=== PATIENT | female | born 1930 | race Caucasian/White ===

== ENCOUNTER → 2016-12-12 | Outpatient (CLI) | payer OTHER | LOC: RAD 15:47 | DX: R05 Cough (principal) ==

== ENCOUNTER 2018-08-07 18:48 | Inpatient (IN) | payer OTHER ==
[~2018-08-07] VITALS: Ht 165.1 cm; Wt 54.3 kg
[2018-08-07 18:50] VITALS: BP 184/101
[2018-08-07] MEDS ORDERED: METFORMIN HCL500 MG PO (19:51)
[2018-08-07] MEDS ORDERED: IBUPROFEN 200200 M1 PO (19:52)
[2018-08-07 20:56] LABS: HEMATOCRIT 41.6 % (37.0-47.0); HEMOGLOBIN 14.1 gm/dL (12.0-15.0); MCH 31.3 pg (26.0-34.0); MCV 92.2 fL (80.0-100.0); RBC 4.52 mil/uL (4.20-5.00); WBC 17.3 thou/uL (4.0-11.0)
[2018-08-07 21:42] LABS: CALCIUM 9.5 mg/dL (8.5-10.1); POTASSIUM 3.5 mmol/L (3.5-5.1)
[2018-08-07 21:48] VITALS: BP 162/87
[2018-08-07 21:50] LABS: URINE CLARITY CLEAR; URINE COLOR YELLOW; URINE GLUCOSE-RANDOM* TRACE (Negative); URINE KETONES TRACE (Negative); URINE PROTEIN (DIPSTICK) NEGATIVE (Negative); URINE SPECIFIC GRAVITY 1.025 (1.005-1.035)
[2018-08-07 21:51] LABS: URINE BILIRUBIN NEGATIVE (Negative); URINE BLOOD 1+ (Negative); URINE LEUKOCYTES-REFLEX NEGATIVE (Negative); URINE NITRITE-REFLEX NEGATIVE (Negative); URINE UROBILINOGEN 0.2 E.U./dl (0.2-1.0)
[2018-08-07 21:58] VITALS: BP 173/73
[2018-08-07 21:58] LABS: BACTERIA-REFLEX 1-9 Few /HPF (None Seen); CASTS None Seen /LPF (None Seen); CRYSTALS None Seen /LPF (None Seen); SQUAMOUS 0-3 Few /LPF (0-3); URINE RBC 0-2 Rare /HPF (0-2); URINE WBC-REFLEX None Seen /HPF (0-5)
[2018-08-07 22:17] VITALS: BP 152/99
[2018-08-08 04:16] VITALS: BP 146/78
--- NOTE | 2018-08-08 05:20 | NUR ---
Pt came up to unit approx 2215. Pt alert and oriented x4. Refuses to take any narcotics for pain. Ibuprofen administered per pt request. Curtis catheter in place. SCD's on. Pain on pelvic area with movement. Admission completed. Ice pack provided for pain relief. Pt states she will not be taking metformin or protonix in the am but agrees to have lidocaine patch put on. Pt calls appropriately. Will continue to monitor.
[2018-08-08 06:46] LABS: ABSOLUTE NEUTROPHILS 5.8 thou/uL (1.4-8.2); BASOPHILS 0.6 % (0.0-2.0); EOSINOPHILS 0.2 % (0.0-3.0); HEMATOCRIT 32.8 % (37.0-47.0); LYMPHOCYTES 27.4 % (24.0-44.0); MCH 31.6 pg (26.0-34.0); MCHC 34.6 g/dL (28.0-37.0); MCV 91.4 fL (80.0-100.0); MONOCYTES 5.3 % (1.0-8.0); PLATELET COUNT 158 thou/uL (150-400); POLYS 66.5 % (36.0-66.0); RBC 3.59 mil/uL (4.20-5.00); RDW 13.5 % (10.5-14.5); WBC 8.7 thou/uL (4.0-11.0)
[2018-08-08 06:59] LABS: HEMOGLOBIN 11.4 gm/dL (12.0-15.0)
[2018-08-08 07:05] LABS: ALBUMIN 3.1 g/dL (3.4-5.0); CALCIUM 8.9 mg/dL (8.5-10.1); POTASSIUM 3.3 mmol/L (3.5-5.1); TOTAL BILIRUBIN 0.8 mg/dL (<0.1-1.0); TOTAL PROTEIN 6.3 g/dL (6.4-8.2)
[2018-08-08 07:45] VITALS: BP 110/56
--- NOTE | 2018-08-08 10:34 | NUR ---
ASSESMENT COMPLETED. VSS. A/O. PAIN MANAGED BY MEDS ORDERED- REFUSING NARCOTICS. NO NOTED SOA. NO NV. PT RESTING IN BED AT THIS TIME. WILL CONT. TO MONITOR.
--- NOTE | 2018-08-08 14:46 | NUR ---
PT ADMITTED RELATED TO PELVIC FX. CM REVIEWED CHART AND SPOKE WITH CARE TEAM. CM MET WITH PT AT BEDSIDE THIS DAY. PT IS A&O X4. CM ROLE INTRODUCED. PT INDICATED SHE LIVES IN A HOUSE WITH HER SPOUSE WHO IS IN THE BEGINING STAGES OF ALZ. SHE SAID THERE ARE 2 STEPS TO ENTER THE HOUSE THROUGH THE GARAGE. SHE INDICATED THAT HE NEIGHBORS ARE HELPING TO LOOK OUT FOR HIM. SHE INDICATED SHE HAD BEEN INDEPENDENT WITH GAIT AND ADLS LDR RN. PT INDICATED THAT SHE IS RECEPTIVE TO POST ACUTE CARE STAY AND THAT SHE IS WANTING TO GO SOMEWHERE WHERE HER SPOUSE CAN STAY WITH HER IF POSSIBLE. CM PROVIED HER A LIST OF FACILITIES AND WILL SEND REFERRALS PER HER REQUEST.
--- NOTE | 2018-08-08 16:38 | NUR ---
FAXED REFERRAL TO [facility] FOR SKILLED STAY LEFT MSG WITH DANIELLE THAT REFERRAL SENT AND TO REVIEW. ANTICIPATE DC FRIDAY 08/11. FAXED REFERRAL TO [facility] SPOKE WITH MAILE AT FACILITY AND THEY RECEIVED REFERRAL AND WILL REVIEW. FAXED REFERRAL TO [facility]. HC SPOKE WITH THERON AND SHE WILL LET SARAH IN ADM. KNOW REFERRAL SENT. DCP TO FOLLOW.
--- NOTE | 2018-08-08 16:53 | NUR ---
CM MET WITH PT SPOUSE AND NEIGHBOR AT BEDSIDE. THEY INDICATED THEY WERE INTERESTED IN [facility], [facility], AND [facility]. REFERRALS WERE SENT TO ALL. RESPIT RATE FOR SPOUSE TO STAY WITH PT: [facility]:625 PER DAY [facility]:320 PER DAY [facility]:259 PER DAY CM TO FOLLOW UP TO DETERMINE DC NEEDS
[2018-08-08 19:50] VITALS: BP 129/51
--- NOTE | 2018-08-09 04:23 | NUR ---
PT DENIED PAIN SO FAR.REPOSITIONED PER HER REQUEST.ICE PROVIDED FOR HER HIP.IVF INFSUING ORDERED.LEWIS CATH TO DD.PT NEEDY,NEEDS MET IN A TIMELY MANNER.PT RESTING ON HER BED AT THIS TIME.CALL LIGHT WITHIN REACH.
[2018-08-09 04:27] VITALS: BP 134/68
[2018-08-09 07:45] VITALS: BP 139/77
--- NOTE | 2018-08-09 11:23 | NUR ---
PT REFUSED METFORMIN FROM [facility] BUT WANTS AT THIS TIME
[2018-08-09 16:30] VITALS: BP 137/66
[2018-08-09 16:50] VITALS: BP 137/66
[2018-08-09 20:00] VITALS: BP 145/72
--- NOTE | 2018-08-10 00:30 | NUR ---
PT REFUSED TO TAKE HER STOOL SOFTENER STATED THAT SHE DOESN'T TAKE THE MED,BUT LATER CHANGED HER MIND AND TOOK IT AFTER PT WAS EDUCATED ON THE IMPORTANCE OF THE MEDICATION.REPOSITIONED WHILE IN BED PER HER REQUEST.IVF INFUSING ORDERED.PT SLEEPING ON HER BED AT THIS TIME.CALL LIGHT WITHIN REACH.
[2018-08-10 04:30] VITALS: BP 153/79
[2018-08-10 06:54] VITALS: BP 134/67
[2018-08-10 10:35] VITALS: BP 134/67
[2018-08-10 16:13] VITALS: BP 166/75
[2018-08-10 20:30] VITALS: BP 134/69
[2018-08-11 03:20] VITALS: BP 137/73
[2018-08-11 03:48] LABS: CALCIUM 8.7 mg/dL (8.5-10.1); CREATININE 0.8 mg/dL (0.6-1.0); POTASSIUM 3.6 mmol/L (3.5-5.1)
[2018-08-11 03:57] LABS: HEMATOCRIT 30.7 % (37.0-47.0); HEMOGLOBIN 10.2 gm/dL (12.0-15.0); MCH 30.8 pg (26.0-34.0); MCHC 33.4 g/dL (28.0-37.0); MCV 92.3 fL (80.0-100.0); RBC 3.33 mil/uL (4.20-5.00); RDW 14.2 % (10.5-14.5); WBC 7.4 thou/uL (4.0-11.0)
--- NOTE | 2018-08-11 04:55 | NUR ---
LEWIS CATH DC'D ORDERED.MIRALAX AND STOOL SOFTNER ADMINISTERED,MEDIUM SOFT BM NOTED.PT REPOSITIONED IN BED PER HER REQUSET,SUPPORTED WITH PILLOWS ON HER SIDES.PT ABLE TO STAND AND SIT ON THE BSC WITH ASSIST.PAIN MED ADMINISTERED X1 SO FAR FOR R HIP PAIN,EFFECTIVE.PT PROGRESSING SLOWLY TOWARDS DC GOALS.CALL LIGHT WITHIN REACH.
[2018-08-11 07:30] VITALS: BP 139/71
--- NOTE | 2018-08-11 09:14 | NUR ---
ASSUME CARE OF PATIENT AT 0800; PTS LUNGS CLEAR UPON AUSCULTATION; HEART SOUNDS STRONG; PULSES STRONG BILATERLY; PT AGREEABLE UPON TAKING IBUPROFEN FOR PAIN TODAY SO THAT SHE CAN PARTICIPATE IN PT
--- NOTE | 2018-08-11 11:47 | NUR ---
REMOVED IV ACCESS FROM LEFT ARM
--- NOTE | 2018-08-11 13:29 | NUR ---
Following for d/c planning needs. Spoke with materials handling coordinator at [facility]. She does not have a bed available today and is not sure if she will have a room available tomorrow for pt and spouse. Spoke with materials handling coordinator at [facility]. They have spoken with pt and plan on accepting pt and her . They have a bed available today and can accept both. Notified physician. Will await orders.
[2018-08-11 15:45] VITALS: BP 140/78
--- NOTE | 2018-08-11 16:27 | H ---
[facility] [place] [address] HISTORY AND PHYSICAL Name: MERCEDES MIJARES Room #: 428-P [facility] IN M.R.#: [id number] Admission: 08/07/18 Attend Phys: Adams Terrazas MD Discharge: Date of : 31 Report #: [id number] THIS REPORT FOR: //name// CC: Adams Terrazas DATE OF SERVICE: 08/07/2018 CHIEF COMPLAINT: Right pubic ramus fracture. HISTORY OF PRESENT ILLNESS: Earlier this evening the patient fell landing on her buttock area after which she reported pain in the right pelvic area. She was brought to the Emergency Room by the paramedics where x-rays showed right pelvic ramus fracture. She requires admission for pain medication adjustment, therapies, and mobilization. The patient says that she lost her balance and fell while stepping from the kitchen into the garage, but did not have shortness of breath, chest pain or loss of consciousness. She has mild glucose intolerance or mild diabetes. She takes metformin 500 mg daily. She has elevated cholesterols, but has preferred not to take lipid lowering agents. eGFR varies from middle 50's (CKD III) to middle 60's (CKD II). ALLERGIES: CODEINE, DIAZEPAM, HYDROCODONE, PENICILLIN, AND POSSIBLY SULFA. Lipitor-atorvastatin was associated with hair falling out in distant past and she won't take statins now. SOCIAL HISTORY: She lives independently in her own home with her . She does not drink nor smoke. She wishes full code. REVIEW OF SYSTEMS: In general feels well and was under good state of health until the accident earlier this evening. No HEENT symptoms. There is no shortness of breath or cough or breathing problems. She has no chest pain or shortness of breath with exertion or swelling. There is no abdominal pain, nausea, vomiting, diarrhea or dysuria. She denies acute rashes. There is no headache or weakness on one side upon the other. FAMILY HISTORY: Noncontributory since she has outlived her first degree relatives. PHYSICAL EXAMINATION: VITAL SIGNS: 92% saturation on room air, blood pressure 184/101, temperature is 36.6, pulse 96 and regular, and respirations are 20. GENERAL: The patient is alert and oriented. HEENT: Unremarkable, the oropharynx is mildly dry, otherwise HEENT is negative. NECK: There are no masses. LUNGS: Clear to auscultation and percussion. [address] [address] HISTORY AND PHYSICAL Name: MERCEDES MIJARES Room #: 428-P [facility] IN .R.#: [id number] Admission: 08/07/18 Attend Phys: Adams Terrazas MD Discharge: Date of : 31 Report #: [id number] CHEST WALL: Nontender to palpation. CARDIOVASCULAR: S1 and S2 are normal in character and the rhythm is regular. ABDOMEN: Soft, nontender, without hepatosplenomegaly or masses. Bowel sounds are normal. EXTREMITIES: The Emergency Room physician examined movement of her right leg and thigh and it did trigger pain in the right buttock area and in the right pubic area. The motor and sensory exam of the legs is normal. There is no edema. DIAGNOSTIC DATA: X-ray of the pelvis showed acute mildly displaced fracture of the right superior and right inferior pubic rami with extension of the fracture into the right pubic bone. The hip itself is not fractured. 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 She is worried that others will have more difficulty making themselves understood by him, while she is recovering from her fracture. She hopes that he will be able to stay in the same room with her at the [facility] facility. ASSESSMENT: 1. Acute right superior and inferior pubic rami fractures. 2. The patient reports that she is quite sensitive to pain medication and is actively discouraging the use of effective narcotic analgesics. 3. Elevated blood pressure due to her pain. 4. Glucose intolerance/mild type 2 diabetes. 5. Untreated hyperlipidemia (the patient's choice). 6. Other medical problems as in history and physical. PLAN: The patient is unable to walk. She requires admission for careful judicious analgesic management in order to allow her some mobility. Curtis catheter is being inserted in order to keep her dry while it is difficult for her to be mobile. Physical Therapy, Occupational Therapy, and social work consultations are being made. She will also be seen in orthopedic consultation. Lovenox will be used as well as SCDs because of the high risk for DVT and/or pulmonary embolus while she is going to be immobile. The patient requests a full code blue. <ELECTRONICALLY SIGNED> By: Adams Terrazas MD 08/11/18 [id number] Adams Terrazas MD /nt
[2018-08-11] MEDS ORDERED: LIDODERM1 EACH TRANSDERM (16:44)
[2018-08-11] MEDS ORDERED: ENOXAPARIN30 MG/0.1 SUBQ (16:44)
[2018-08-11] MEDS ORDERED: PAIN & FEVER325 MG PO (16:44)
[2018-08-11] MEDS ORDERED: IBUPROFEN 400400 M2 PO (16:44)
[2018-08-11] MEDS ORDERED: PROTONIX 20 MG20 MG PO (16:44)
[2018-08-11] MEDS ORDERED: MILK OF MA2400 MG/10 PO (16:44)
[2018-08-11] MEDS ORDERED: COLACE 100 MG100 MG PO (16:44)
[2018-08-11] MEDS ORDERED: GLUCOPHAGE500 MG PO (16:44)
[2018-08-11] MEDS ORDERED: TRAMADOL 50 MG50 MG PO (16:44)
--- NOTE | 2018-08-11 16:55 | NUR ---
PT. DISCHARGING TODAY TO [facility]. TRANSPORTATION SET UP FOR [phone] [facility]. RN/US TO FAX DC ORDERS/SUMMARY TO [phone] AND CALL REPORT TO [phone]. FAMILY NOTIFIED PER . UNIT NOTIFIED OF TIME OF TRANSPORT AND CHART COPY PER US.
--- NOTE | 2018-08-11 17:46 | NUR ---
PATIENT DISCHARGED TO [facility]; IV ACCESS WAS DC; PT CALM UPON DISCHARGE; SON WILL ACCOMPANY TO FACILITY; CALLED JANETH AT [facility] WITH REPORT
== END 2018-08-11 17:36 | DRG 536 ==
LOC: ER 18:48 → 4E 20:45 → EROBS 20:45 → 4E 22:05
PROVIDERS: Emergency Medicine; ADMIT Internal Medicine
DX: S32.511A Fracture of superior rim of right pubis, initial encounter for closed fracture (principal); E11.22 Type 2 diabetes mellitus with diabetic chronic kidney disease; D64.9 Anemia, unspecified; N18.3 Chronic kidney disease, stage 3 (moderate); W01.0XXA Fall on same level from slipping, tripping and stumbling without subsequent striking against object, initial encounter; Y93.89 Activity, other specified; Y92.59 Other trade areas as the place of occurrence of the external cause; Y99.8 Other external cause status; Z88.6 Allergy status to analgesic agent; Z88.0 Allergy status to penicillin; Z88.8 Allergy status to other drugs, medicaments and biological substances
CPT/HCPCS: 10084

== ENCOUNTER → 2018-09-30 | Outpatient (CLI) | payer OTHER ==
[~2018-09-30] MED LIST: COLACE 100 MG100 MG PO; ENOXAPARIN30 MG/0.1 SUBQ; GLUCOPHAGE500 MG PO; IBUPROFEN 200200 M1 PO; IBUPROFEN 400400 M2 PO; LIDODERM1 EACH TRANSDERM; METFORMIN HCL500 MG PO; MILK OF MA2400 MG/10 PO; PAIN & FEVER325 MG PO; PROTONIX 20 MG20 MG PO; TRAMADOL 50 MG50 MG PO
== END ==
LOC: CAT 11:19
DX: G31.9 Degenerative disease of nervous system, unspecified (principal)

== ENCOUNTER 2018-10-12 20:37 | Inpatient (IN) | payer OTHER ==
[~2018-10-12] VITALS: Ht 165.1 cm; Wt 49.1 kg
--- NOTE | ~2018-10-12 | H ---
[facility] [place] [address] HISTORY AND PHYSICAL Name: MERCEDES MIJARES Room #: 429-P [facility] IN M.R.#: [id number] Admission: 10/13/18 ������������������ Attend Phys: Adams Terrazas MD Discharge: ������������������ Date of : 31 Report #: [id number] THIS REPORT FOR: //name// CC: Hubert Terrazas DATE OF SERVICE: 10/13/2018 CHIEF COMPLAINT: New left pelvic fracture, also several sacral fractures. HISTORY OF PRESENT ILLNESS: The patient fell at home on 08/07/2018 fracturing her right pubic rami. She was stabilized and transferred to [facility]. The transfer took some extra time because her demented needed a memory care room in the same facility. She had just returned home and had been home only for several hours yesterday when she got up without her walker and at this time, fell on her left side and fractured her left pubic rami. Bilateral sacral ala fractures are also present and are new. Inpatient admission is indicated for pain control, evaluation with various disciplines as well as orthopedic evaluation and further defining the degree of her various fractures. PAST MEDICAL HISTORY: Relatively little given her 88 years of age. She has mild glucose intolerance or diabetes, which is well controlled on metformin 500 mg once daily. She has elevated cholesterols, but had difficulties with hair loss due to atorvastatin in the past and has since then preferred not to take lipid lowering agents. She has chronic kidney disease, stage 2 to stage 3 with her EGFR varying from the middle 50s to the middle 60s. She occasionally has constipation. She was quoted in the Emergency Room as wondering if frequent urinary tract infections are cause of her forgetting to use her walker, although she denies symptoms at this time. She is prone to constipation. ALLERGIES: CODEINE, DIAZEPAM, HYDROCODONE, PENICILLIN AND POSSIBLY SULFA. ATORVASTATIN WAS ASSOCIATED WITH HAIR LOSS IN THE DISTANT PAST. SOCIAL HISTORY: Prior to 08/07/2018, she lived independently in her own home with her . Her is significantly demented, and although he can dress and toilet himself, he needs guidance in all other activities of daily living. Her son is currently in town to help with her returning from [place] back home and is caring for her at her home while she is here in the hospital. She needs to have a snf facility again for rehabilitation and pain control and one that her can stay in with the room not too distant from her's, so she can help direct his care. [address] [address] HISTORY AND PHYSICAL Name: MERCEDES MIJARES Room #: 429-P [facility] IN ..#: [id number] Admission: 10/13/18 ������������������ Attend Phys: Adams Terrazas MD Discharge: ������������������ Date of : 31 Report #: [id number] HOME MEDICATIONS: List was left in the Emergency Room record: Tylenol as needed for pain, Colace twice daily, ibuprofen 400 mg every 4 hours as needed, lidocaine patch over the pelvic fracture, milk of magnesia twice daily as needed for constipation, metformin 500 mg in the morning for glucose intolerance/diabetes, tramadol 50 mg every 4 hours as needed for pain (note made that on previous admission, she refused medications of this strength). REVIEW OF SYSTEMS: Negative except for the HPI above. She does not have shortness of breath or chest discomfort. She does not have urinary discomfort. She did have an extremely generous amount of stool several days ago for a cleanout. PHYSICAL EXAMINATION: GENERAL: Shows an 88-year-old female who is awake and alert and oriented. HEENT: Shows her oral mucosa to be quite dry. NECK: Negative. LUNGS: Clear. CARDIOVASCULAR: S1 and S2 are normal and the rhythm is regular. ABDOMEN: Soft and nontender. The left hip and thigh area is tender to the touch. There are no organomegaly or masses in the abdomen. EXTREMITIES: Normal. NEUROLOGIC: Screening neurological examination is intact. No laboratory data have been obtained other than the plain films and the CT scan of the pelvis. ASSESSMENT: 1. Acute left inferior and superior pubic rami fractures. 2. At least 2 sacral ala fractures that appear acute by CT and plain films. 3. S3 fracture of indeterminate age on current images. 4. Asymptomatic cholelithiasis. 5. Chronic constipation -- note made that her current x-rays show a large amount of stool in the colon. 6. Mild glucose intolerance. 7. She reports intolerance to strong analgesic medications and prefers Tylenol and/or ibuprofen. She does say that the lidocaine patch in the recent past may have also been beneficial. 8. There appeared to be some cognitive understanding issues as well. 9. Mildly elevated blood pressure of 155/86. PLAN: 1. The patient again wishes to remain a full code blue. MRI scanning will be obtained to define the degree of the fractures in her pelvic ring, the acute versus subacute or nonunion fractures. 2. She does have osteoporosis and treatment will need to be addressed after the fractures are healed. [address] [address] HISTORY AND PHYSICAL Name: MERCEDES MIJARES Room #: 429-P [facility] IN ..#: [id number] Admission: 10/13/18 ������������������ Attend Phys: Adams Terrazas MD Discharge: ������������������ Date of : 31 Report #: [id number] 3. Her son is in town fortunately to help with the transition to a new snf facility where his father can go as well. 4. Intravenous fluids for her dehydration, and laboratory will be drawn in the morning. ��������������������������������������������� ���������������������������������������� By: ��������������������������������������������� [id number] Adams Terrazas MD /nt
[2018-10-12 20:38] VITALS: BP 153/81
--- NOTE | 2018-10-12 20:50 | NUR ---
per doctor Brandonnious to deactivate trauma now
[2018-10-13 00:38] VITALS: BP 178/82
[2018-10-13 01:23] VITALS: BP 178/82
[2018-10-13 01:30] VITALS: BP 173/84
--- NOTE | 2018-10-13 05:34 | NUR ---
PT ARRIVED TO UNIT APPROX 0130 IN STABLE CONDITION, ADMISSION AND ASSESSMENT COMPLETED, CONSENTS SIGNED. PT A&Ox4 BUT SOMEWHAT FORGETFUL, TANGENTIAL WITH CONVERSATION AND FREQ REPEATING SELF, HAS BILATERAL CATARACTS. WAS HERE IN [place]UL[place] FOR A PELVIC FRACTURE THEN SENT TO [facility] FOR REHAB; SHE DISCHARGED HOME SATURDAY MORNING THEN FELL IN THE AFTERNOON. PT HAS PAIN WITH TURNS AND IS SLOW/WEAK WITH WALKING, BUT OTHERWISE HAS VERY LITTLE PAIN. DENIES NAUSEA OR SOB. SKIN IN GOOD CONDITION, A FEW SMALL BRUISES AND ONE SMALL ABRASION ON LEFT KNEE, NO OPEN SPOTS. SLIGHT REDNESS TO SACRAL/BUTTOCKS FROM WEARING A WET BRIEF ALL DAY. EDUCATED PT ABOUT PERICARE AND CHANGING BRIEFS PROMPTLY. NO OTHER CONCERNS, WILL CONTINUE TO MONITOR.
[2018-10-13 08:20] VITALS: BP 152/74
--- NOTE | 2018-10-13 09:36 | NUR ---
ASSESMENT COMPLETED. VSS. A/O. C/O PAIN WITH MOVEMENT. NO NOTED SOA. NO NV. UP WITH ASSIST TO COMMODE. PT RESTING IN BED AT THIS TIME. WILL CONT. TO MONITOR.
--- NOTE | 2018-10-13 14:51 | NUR ---
I have reviewed the documentation by ZEUS MARTIN from 10/13/18 to 10/13/18 and I concur with it. GEOFF GARCIA A
--- NOTE | 2018-10-13 17:22 | NUR ---
ASSESSMENT- PT KNOWN FROM LAST ADMISSION WHEN SHE HAD GONE TO [facility] FOR REHAB & SPOUSE HAD GONE FOR RESPITE CARE. PT WAS JUST DISCHARGED HOME FROM [facility] AND HAD ONLY BEEN HOME A FEW HOURS BEFORE HER FALL. SON HERE HELPING OUT TILL NEXT . HE IS MEETING WITH A LADY TOMORROW TO TALK ABOUT ASSISTED LIVING FACILITIES ETC. HE SAYS HE IS LOOKING INTO MOVING HIS PARENTS INTO SOME SORT OF SUPERVISED LIVING SITUATION OR MOVING THEM TO [place] WHERE THEY HAVE ADDITIONAL FRIENDS OR MOVING THEM TO [facility] TO BE CLOSER TO HIM. AWAITING INPUT FROM DR SALEH AND THERAPIES. FOLLOWING TO ASSIST WITH DC PLANNING.
[2018-10-13 19:26] VITALS: BP 155/86
--- NOTE | 2018-10-14 03:13 | NUR ---
ASSESSMENT COMPLETED.PT ALERT WITH CONFUSION.PT DENIED PAIN AT START OF SHIFT BUT COMPLAINED ABOUT THE PROTECTIVE WRAP ON HER IV SITE.PT STATED THAT THE WRAP WAS POKING INTO HER SKIN,WRAP REMOVED .PT CONT TO COMPLAIN ABOUT IV SITE COMING OUT,WANTED THE ACCESS REMOVED,PT EDUCATED ON THE IMPORTANCE OF THE ACCESS.PT NOT RECEPTIVE OF THE EXPLANATION FORM THIS NURSE SO ANOTHER NURSE WAS CALLED IN TO TALK TO PT.PROTECTIVE WRAP WAS REPLACED PER PT'S REQUEST ONLY FOR HER TO COMPLAIN AGAIN MINUTES LATER.WRAP WAS FINALLY TAKEN OFF.PT REQUESTED TO TALK TO HER SON BUT CALLED A WRONG NUMBER COUPLE OF TIMES AND SHE TOLD THE PERSON THAT SHE CALLED THAT SHE WAS IN PAIN AND NO ONE WAS ADDRESSING HER PAIN.SHE ALSO STATED THAT SHE HAD PUT HER LIGHT ON COUPLE OF TIMES AND NO ONE CAME IN TO SEE HER.PT DENIED MAKING THE CALL AND STATED THAT WHOEVER CALLED US WAS LYING.PT DENIED PAIN WHEN ASKED .UA OBTAINED AND SENT DOWN TO THE LAB.PT RESTING ON HER BED AT THIS TIME.FALL PRECAUTIIONS IN PLACE,CALL LIGHT WITHIN REACH.
[2018-10-14 03:35] VITALS: BP 155/87
[2018-10-14 03:56] LABS: URINE BILIRUBIN NEGATIVE (Negative); URINE BLOOD NEGATIVE (Negative); URINE CLARITY CLEAR; URINE COLOR YELLOW; URINE GLUCOSE-RANDOM* NEGATIVE (Negative); URINE KETONES NEGATIVE (Negative); URINE LEUKOCYTES-REFLEX NEGATIVE (Negative); URINE NITRITE-REFLEX NEGATIVE (Negative); URINE PROTEIN (DIPSTICK) NEGATIVE (Negative); URINE SPECIFIC GRAVITY <= 1.005 (1.005-1.035); URINE UROBILINOGEN 0.2 E.U./dl (0.2-1.0)
[2018-10-14 06:52] LABS: ABSOLUTE NEUTROPHILS 5.2 thou/uL (1.4-8.2); BASOPHILS 0.5 % (0.0-2.0); EOSINOPHILS 0.4 % (0.0-3.0); HEMATOCRIT 37.4 % (37.0-47.0); HEMOGLOBIN 12.3 gm/dL (12.0-15.0); LYMPHOCYTES 31.4 % (24.0-44.0); MCHC 32.9 g/dL (28.0-37.0); MCV 91.1 fL (80.0-100.0); MONOCYTES 5.9 % (1.0-8.0); PLATELET COUNT 246 thou/uL (150-400); POLYS 61.8 % (36.0-66.0); RBC 4.11 mil/uL (4.20-5.00); RDW 15.8 % (10.5-14.5); WBC 8.5 thou/uL (4.0-11.0)
[2018-10-14 07:10] LABS: ALBUMIN 3.3 g/dL (3.4-5.0); CALCIUM 9.2 mg/dL (8.5-10.1); CREATININE 0.6 mg/dL (0.6-1.0); POTASSIUM 3.9 mmol/L (3.5-5.1); TOTAL BILIRUBIN 0.7 mg/dL (<0.1-1.0); TOTAL PROTEIN 6.7 g/dL (6.4-8.2)
[2018-10-14 08:15] VITALS: BP 132/64
--- NOTE | 2018-10-14 10:33 | NUR ---
ASSESMENT COMPLETED. VSS. A/O/FORGETFUL/ANXIOUS. PT RESTING IN BED AT THIS TIME. REFUSES LAXATIVE/STOOL SOFTENER. C/O PAIN WITH MOVEMENT. WILL CONT. TO MONITOR.
--- NOTE | 2018-10-14 16:10 | NUR ---
TRIED TO REACH SON BUT HE WAS AT DR SALEH'S OFFICE WITH HIS DAD. THEY WILL BE COMING TO THE HOSPITAL AFTER THIS VISIT.
[2018-10-14 16:45] VITALS: BP 165/82
--- NOTE | 2018-10-14 17:25 | NUR ---
SON WANTS ME TO S/W RAYNE AKERS WHO HE MET WITH EARLIER TODAY TO ASSIST IN PLACEMENT FOR HI PARENTS. [facility] D[facility] AND MOM FOR POSSIBLE [facility] BENEFITS. SON WILL BE LEAVING NEXT TO GO BACK TO [place] THEN WILL RETURN NOVEMBER 07 & BE HERE UNTIL NOVEMBER 24 TO CONTINUE TO HELP WITH MAKING CARE ARRANGEMENTS FOR HIS PARENTS. PT WILL NEED REHAB ONCE MEDICALLY STABLE FOR DC.
[2018-10-14 22:05] VITALS: BP 162/80
[2018-10-15 00:06] LABS: GLYCOHEMOGLOBIN (HGB A1C) 6.9 % (4.8-5.6)
[2018-10-15 04:30] VITALS: BP 146/74
--- NOTE | 2018-10-15 05:56 | NUR ---
ASSUMED CARE AT 1900, ASSESSMENT COMPLETED. PT REPORTS PAIN IN HIP, BUT REFUSED PAIN MEDS. UP WITH MODERATE TO HEAVY ASSIST TO BSC, PT MOVING VERY SLOWLY, WITH POOR STRENGTH IN LEFT LEG, HAVING TO LIFT LEGS WITH HER HANDS WHEN MOVING IN BED. REQUIRES FREQ EDUCATION/COACHING ON HOW TO TRANSFER PROPERLY. DENIES SOA OR NAUSEA. PULLED IV OUT OF RIGHT AC, NEW IV STARTED IN RIGHT FA. IV FLUIDS INFUSING. NO OTHER CONCERNS, WILL CONTINUE TO MONITOR.
[2018-10-15 08:39] VITALS: BP 165/88
--- NOTE | 2018-10-15 15:32 | NUR ---
PATIENT WAS SEEN BY MARYCRUZ AGUILERA NP FOR DR. POLANCO 10/14/18. PATIENT IS APPROPRIATE FOR ACUTE REHAB AND CAN BE ACCEPTED FOR [facility]. QUALITY ASSURANCE MANAGER IS AWARE. AT THIS TIME DECISION REGARDING DISCHARGE LOCATION NOT BEEN MADE BY PATIENT'S SON. MARCUS (QUALITY ASSURANCE MANAGER) WILL UPDATE 5N WHEN DECISION IS MADE. PATIENT CAN ADMIT WHEN MEDICALLY STABLE.
--- NOTE | 2018-10-15 16:02 | NUR ---
S/W RAYNE AKERS THIS AM AND SHE IS TRYING TO FIND A MEMORY CARE ASSISTED LIVING FACILITY FOR THE PT'S . S/W DR SALEH THIS AM TO DISCUSS CASE. [facility] IS CURRENTLY FULL TILL AT LEAST SATURDAY. ASKED DC DEPARTMENT CLINICIAN TO FAX REFERRAL TO THE [facility] AND TO CHECK ON RESPITE CARE PRICING FOR THE . WILL NEED TO OBTAIN MED LIST FOR FROM DR SALEH'S OFFICE.
[2018-10-15 16:25] VITALS: BP 141/85
--- NOTE | 2018-10-15 17:15 | NUR ---
FAXED REFERRAL TO THE [facility] SPOKE WITH RAYMOND IN ADM. SHE RECEIVED REFERRAL AND WILL REVIEW. PT'S HAS DEMENTIA AND LOOKING INTO A RESPIT STAY AT THE [facility] RM $225/DAY. DCP TO FOLLOW.
[2018-10-15 19:40] VITALS: BP 160/79
[2018-10-16 04:00] VITALS: BP 167/89
--- NOTE | 2018-10-16 06:12 | NUR ---
ASSUMED CARE AT 1900, ASSESSMENT COMPLETED. PT REPORTS MODERATE PAIN WHEN ASKED DIRECTLY ABOUT IT BUT WILL NOT VOLUNTARILY ASK FOR ANY PAIN MEDS; EDUCATED PT THAT TRANSFERS WILL BE EASIER/LESS TAXING IF HER PAIN IS BETTER CONTROLLED, ENCOURAGED HER TO CALL FOR PAIN MEDS. DRINKING PLENTY OF FLUIDS. DENIES NAUSEA OR SOB. PLAN FOR D/C PENDING INSURANCE AUTH. NO OTHER CONCERNS, WILL CONTINUE TO MONITOR.
--- NOTE | 2018-10-16 08:59 | NUR ---
PT IS A&0X2, [place], VERY IMPATIENT WITH STAFF, CONFUSED AND NOT EASILY RE-DIRECTED. STATES SHE'S OVERWHELMED WITH EVERYTHING. LET HER KNOW SHE'S THE BOSS AND WE CAN WORK AT HER PACE. ENCOURAGED HER TO USE CALL LIGHT FOR ANY NEEDS. WILL CONTINUE TO MONITOR
--- NOTE | 2018-10-16 15:31 | NUR ---
D/C ORDERS PENDING PHYSICIAN'S FINISHING D/C. PT NOW UNDERSTANDS, ITEMS PACKED. CALLED REPORT TO THERON Garcia [phone]. ALL BELONGINGS W/PT AND WILL ARRANGE FOR TRANSPORT
--- NOTE | 2018-10-16 15:31 | NUR ---
kain rosales from [facility] HERE THIS AM WITH PT'S SON SUKUMAR TO MEET WITH PT TO DISCUSS PLACEMENT OF PT'S IN MEMORY CARE WHILE THE PT GOES TO REHAB HERE AT [facility] THEN THE PLAN FOR PT WILL BE TO MOVE IN TO [facility] WITH HER SPOUSE. S/W DR SALEH AND HE SAYS PT IS MEDICALLY READY FOR TRANSFER TODAY. DISCUSSED WITH PT ABOUT MOVING TO [facility] TODAY MULTIPLE TIMES THIS AFTERNOON. ASKED SOMEONE FROM DIETARY TO COME MEET WITH PT TO ASSIST HER IN ORDERING MEALS THAT SHE WILL EAT. NOTIFIED SON SUKUMAR OF PLAN TO MOVE TO [facility] TODAY. NOTIFIED SON OF PT NEW ROOM NUMBER [id number].
--- NOTE | 2018-10-16 15:47 | NUR ---
Nutrition: Assisted pt with menu ordering per CM request. Due to poor intake, liberalized tonight's dinner. Still ordered dinner as mechanically altered/chopped. Full nutrition follow up tomorrow.
[2018-10-16 16:00] VITALS: BP 138/70
[2018-10-16] MEDS ORDERED: PIOGLITAZONE15 MG PO (17:59)
[2018-10-16] MEDS ORDERED: ENOXAPARIN40 MG/0.1 SUBQ (17:59)
[2018-10-16] MEDS ORDERED: MIRALAX17 GM PO (17:59)
== END 2018-10-16 19:00 | DRG 535 ==
LOC: ER 20:37 → EROBS 10-13 00:29 → 4E 10-13 00:29 → ENTRNSPT 10-16 18:17 → 4E 10-16 19:00
PROVIDERS: Internal Medicine; ADMIT Internal Medicine
DX: S32.592A Other specified fracture of left pubis, initial encounter for closed fracture (principal); E43 Unspecified severe protein-calorie malnutrition; G92 Toxic encephalopathy; S32.10XA Unspecified fracture of sacrum, initial encounter for closed fracture; Z68.1 Body mass index [BMI] 19.9 or less, adult; K59.09 Other constipation; E11.22 Type 2 diabetes mellitus with diabetic chronic kidney disease; M81.0 Age-related osteoporosis without current pathological fracture; E86.0 Dehydration; R41.0 Disorientation, unspecified; M19.90 Unspecified osteoarthritis, unspecified site; S76.012A Strain of muscle, fascia and tendon of left hip, initial encounter; E78.5 Hyperlipidemia, unspecified; K59.00 Constipation, unspecified; Z88.6 Allergy status to analgesic agent; Z88.0 Allergy status to penicillin; Z88.8 Allergy status to other drugs, medicaments and biological substances; N18.3 Chronic kidney disease, stage 3 (moderate); W18.39XA Other fall on same level, initial encounter; Y93.89 Activity, other specified; Y99.8 Other external cause status; Y92.098 Other place in other non-institutional residence as the place of occurrence of the external cause
CPT/HCPCS: 10084

== ENCOUNTER 2018-10-16 15:21 | Inpatient (IN) | payer OTHER ==
[~2018-10-16] VITALS: Ht 170.2 cm; Wt 48.9 kg
--- NOTE | 2018-10-16 16:00 | NUR ---
chart review, cm visited with pt at bedside, rt acute rehab, home health, assisted living, transition of care and team meeting. pt is a & o 2-3, able to make her needs know, pleasant with some confusion and forgetfulness. pt stated " diff swallowing pills, mouth is dry all the time, would love to have donut. having some problems with memory recall. have to learn to use walker. had fall. live at home"/nikolas. noted in chart, son sveta lives in [place] and comes back and forth. looking into memory respite for his dad while pt is in [facility] acute rehab. he will be going back to [place] on and then back. looking into facility, assisted living for his parents. cm visited with sveta via phon call reported " going back on then back form few weeks, [facility], going to move to assisted living there once mom is there, mom just has to sign off on it and should be ok. 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 mom was independent prior to fx and then went to [facility] for skilled rehab and then had fall at home right after home from [facility]. wont answer if call and at work. call if need anything"/sveta. will cont following as needed for dc needs.
[2018-10-16] MEDS ORDERED: ENOXAPARIN40 MG/0.1 SUBQ (17:59)
[2018-10-16] MEDS ORDERED: MIRALAX17 GM PO (17:59)
[2018-10-16] MEDS ORDERED: PIOGLITAZONE15 MG PO (17:59)
--- NOTE | 2018-10-16 22:30 | NUR ---
ADMISSION HERE 1900 WITH RECENT PELVIC FRACTURE. SIGNED CONSENTS, REHAB UNIT EXPLAINED TO PATIENT, SHE IS REFUSING [facility] AND SCDs, UP TO [facility] WITH GAIT BELT TO ASSIST. TYLENOL FOR LEFT PELVIC AND LEFT LOWER BACK PAIN AT THIS TIME.
[2018-10-17 05:14] LABS: HEMATOCRIT 35.7 % (37.0-47.0); MCH 30.3 pg (26.0-34.0); MCHC 33.6 g/dL (28.0-37.0); RBC 3.96 mil/uL (4.20-5.00); RDW 15.1 % (10.5-14.5); WBC 7.4 thou/uL (4.0-11.0)
[2018-10-17 05:25] LABS: CALCIUM 8.9 mg/dL (8.5-10.1); CREATININE 0.5 mg/dL (0.6-1.0); POTASSIUM 3.6 mmol/L (3.5-5.1)
--- NOTE | 2018-10-17 08:47 | NUR ---
ASSUME PT CARE AT 0700. REPORTS SLEPT [place] LAST NIGHT. ALERT AND ORIENTED X4, FORGETFUL D/T AGE. HAS MILD RIGHT HIP PAIN, LIDOCAIN ORDER. HAS DRY COUGH. DENIES SOB, N/V. TAKE MED WHOLE ONE AT THE TIME. PT REFUSES TAKING METFORMIN AND PIOGLITAZONE BS WAS [address] AM[address] WILL NOTIFY DR. SALEH. OFFERED SUPPORTIVE CARE. ENCOURAGED PT TO VOICE HER NEEDS. LABS REVIEWED. CREATINE 0.5, NA 131. WILL NOTIFY DOCTOR. REASSESSMENT PER CHART. BS PRESENT, DOESN'T REMEMBER WHEN SHE HAD BM. MIRALAX AND COLACE GIVEN SCHEDULE.FALL PRECAUTION IN PLACE. CALL LIGHT WITHIN REACH. CHECK FREQUENTLY FOR NEEDS AND SAFETY.
[2018-10-17 09:19] VITALS: BP 130/71
[2018-10-17 20:00] VITALS: BP 144/78
--- NOTE | 2018-10-17 22:30 | NUR ---
RESTING WELL AFTER SPENDING QUITE A WHILE RE-ORGANIZING HER BELONGINGS AND PERSONAL CARE ITEMS. REMEMBERS TAKING MEDS BUT DOES NOT CORRECTLY PLACE THEM IN TIME, SHE KNOWS THAT SHE NEEDS LOVENOX, BUT FEELS IF SHE IS TAKING IT TWICE A DAY.
--- NOTE | 2018-10-18 04:05 | NUR ---
UP TO BATHROOM WITH WALKER AND CONTACT GUARD ASSIST, LARGE BM.
[2018-10-18 09:18] VITALS: BP 159/94
--- NOTE | 2018-10-18 10:14 | NUR ---
ASSUMED CARE AT 0700. PATIENT IS ALERT AND ORIENTED X 3-4, BUT IS FORGETFUL. PATIENT IS HAVING DIFFICULTY SWALLOWING PILLS. A.M. MED HAD TO BE CRUSHED AND PUT IN APPLESAUCE. PATIENT STATES" HER MOUTH IS ALWAYS DRY. CONTINUES ON THIN LIQUIDS WITHOUT COUGHING. ST NOTIFIED OF PATIENTS PROBLEM WITH SWALOWING MEDS. UP IN BED FOR BREAKFAST. ATE 15% PATIENT IS UP WITH ASSIST OF 1 WITH GAIT BELT TO AMBULATE TO BATHROOM. FALL AND SAFETY PROTOCOLS IN PLACE. C/O PAIN IN HER BACK AND LEFT PELVIS REGION. CONTINUES TO PROGRESS SLOWLY TOWARDS D/C GOALS. WILL CONTINUE TO MONITER.
[2018-10-18 19:32] VITALS: BP 183/95
--- NOTE | 2018-10-19 05:37 | NUR ---
Assumed care of pt at 1915. Pt alert, oriented to person and place, with some confusion and forgetfulness noted. Assisted to BSC with gait belt, walker and mod assist of one. c/o bilat pelvic pain with movement. Has appeared to be sleeping when checked on hourly rounds. Bed alarm on
[2018-10-19 09:02] VITALS: BP 147/87
--- NOTE | 2018-10-19 16:32 | NUR ---
ASSUMED CARE OF PT AT 0715. PT IS A&OX4. IS ON ROON AIR. IS STABLE. IS UP WITH 1 ASSIST, GB, WALKER. REPORTS PAIN LEFT SIDE BACK. REFUSES PAIN MEDS. REPORTS PAIN IS MOSTLY WITH MOVEMENT. FALL PRECAUTIONS & HOURLY ROUNDING MAINTAINED. LABS & VITALS REVIEWED. WILL CONTINUE TO MONITOR.
[2018-10-19 19:42] VITALS: BP 141/89
--- NOTE | 2018-10-20 03:21 | NUR ---
DECLINES PAIN MEDICINE EXCEPT FOT THE LIDODERM PATCH THAT SHE WEARS DURING THE DAY. USING BSC RATHER THAN THE TOILET OVERNIGHT, WEARS BRIEF ONLY DURING THE DAY FOR USI, NO ACCIDENTS OVERNIGHT. DISCUSSION OF SWALLOW STUDY WITH PATIENT UPSET HER GREATLY, SHE DOES NOT WNAT TO DO IT. I EXPLAINED TO HER THAT ALL SHE HAD TO DO WAS SWALLOW TABLESPOONS OF VARIOUS CONSISTENCIES AND MAYBE SHE COULD GET AWAY FROM THE CHOPPED MEATS THAT ARE BOTHERING HER SO MUCH. HER ARGUMENT SEEMS TO BE THAT SHE DOES NOT DO ANY OF THIS AT HOME, SO WHY SHOULD SHE DO IT HERE? I EXPLAINED THAT THIS IS PART OF HER THERAPY AND FOR HER SAFETY, SHE IS NOT CONVINCED BY ANY OF MY ARGUMENTS.
--- NOTE | 2018-10-20 06:33 | HC ---
[facility] [place] [address] CONSULTATION Name: MERCEDES MIJARES Room #: 515-P [facility] IN M.R.#: [id number] Admission: 10/16/18 ������������������ Attend Phys: Gaudencio Diaz MD Discharge: ������������������ Date of : 31 Report #: [id number] THIS REPORT FOR: //name// CC: Gaudencio Terrazas DATE OF SERVICE: 10/18/2018 NEUROBEHAVIORAL STATUS EXAM ATTENDING PHYSICIAN: Gaudencio Diaz MD. CAFE TEAM MEMBER: Cesario Hutchison, PhD. CLINICAL PRESENTATION: The patient is an 88-year-old female admitted to the [facility] for comprehensive inpatient rehabilitation program. She was initially admitted to the hospital on 08/07/2018 after a fall at her home. She sustained a right pubic ramus fracture and was discharged to a assisted facility. She was returned home for 1 day and then had another fall sustaining an acute left pubic ramus fracture. The patient had problems with confusion and disorientation and was diagnosed with an acute encephalopathy, dehydration and chronic kidney disease. Her diagnostic impressions on admission to the Rehabilitation Unit included encephalopathy, fall with acute left pubic ramus fracture and bilateral sacral fractures, subacute right pubic ramus fracture, S3 fracture, osteoporosis, degenerative arthritis, protein-calorie malnutrition, dehydration, chronic kidney disease, diabetes mellitus type 2, hyperlipidemia and asymptomatic cholelithiasis. A complete description of her medical condition and history can be found in her medical record. Neuropsychological consultation was requested to provide assistance in the assessment of cognitive and emotional status and to provide recommendations and services. Prior to this most recent admission, she was living independently in her own home. She is and reports that her has been diagnosed with dementia. She has one son. Education includes high school with two years of college. 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 TECHNIQUES UTILIZED: Clinical interview, review of medical records, staff consultation and behavioral observation, mini mental status exam 2 standard version, letter fluency assessment, clock drawing. EXAMINATION FINDINGS: The patient was alert and cooperative with the assessment. She was unable to specifically describe the reason for her hospitalization. Speech is hyperverbal with tangential ideation and [facility] [address] [place] [address] CONSULTATION Name: MERCEDES MIJARES Room #: 515-P [facility] IN M.R.#: [id number] Admission: 10/16/18 ������������������ Attend Phys: Gaudencio Diaz MD Discharge: ������������������ Date of : 31 Report #: [id number] confabulation. Decreased auditory comprehension is likely to contribute to confabulation and tangential speech. Her self reported deficits include word finding, sleep, appetite and anxiety along with depression. She also notices changes in taste and smell and has been losing weight. Stress in taking care of her is contributing to decreased functioning. Her performance on the MMSE 2 brief version is within normal limits with a raw score of 14 of 16. She was 2/3 for initial registration, 5/5 for orientation to time and place and 2/3 for immediate recall of 3 items after a brief time delay and distraction. Her performance deteriorated on the standard version to a raw score 23 and a T-score of 36 and percentile rank of 8. She was 1 of 5 for serial sevens, 2 of 2 for naming, 1 of 1 for repetition, 3 of 3 for auditory comprehension, 1 of 1 for reading and been able to write a sentence. The patient was unable to accurately copy a simple geometric design. Her performance in letter fluency was extremely low with a raw score of 2, percentile rank of less than 1 and a T score of 22. Category fluency was somewhat better with a raw score of 16, T-score of 27, and percentile rank of 1. Overall, total fluency was extremely low with a raw score of 18, T-score of 25 and percentile rank of 1. The patient was unable to draw a clock. She required assistance in the spatial organization of the clock as well as number placement. With adequate structure, her functioning improved. Visually mediated deficits are suggested. The patient is presenting with executive functioning deficits along with a variability in memory. Tangential ideation associated with confabulation are also noted. She is alert and oriented. Therefore, delirium appears to have resolved. DIAGNOSTIC IMPRESSIONS: Major neurocognitive disorder (dementia) - Unspecified -- with tangential ideation -- extent to be determined, likely in the mild range. Adjustment disorder with anxiety and depressed mood. RECOMMENDATIONS: The patient will require assistance in management of medication, nutrition and finances. Assistance in the care of her is also indicated. This type of presentation suggests dysfunction in subcortical neural networks. Following discharge, a more thorough workup for neurodegenerative disorder is indicated. Driving is a safety concern and should be discontinued pending a more thorough [facility] [address] [place] [address] CONSULTATION Name: MERCEDES MIJARES Room #: 515-P [facility] IN M.R.#: [id number] Admission: 10/16/18 ������������������ Attend Phys: Gaudencio Diaz MD Discharge: ������������������ Date of : 31 Report #: [id number] assessment. Consider the use of an antidepressant medication with anxiolytic features to assist in adjustment. Followup neuropsychological testing to clarify neurocognitive deficits. Family education in regard to cognitive deficits is also indicated. Thank you very much for allowing me to provide the consultation on this patient. ��������������������������������������������� <ELECTRONICALLY SIGNED> ���������������������������������������� By: Cesario Hutchison, PhD ��������������������������������������������� 10/20/18 0633 1235 1944 Cesario Hutchison, PhD /nt
[2018-10-20 08:30] VITALS: BP 167/87
--- NOTE | 2018-10-20 12:15 | NUR ---
CM NOTIFIED THAT [facility] WAS HERE TO VISIT WITH PT, GENTLEMAN NAME WAS ECZAR. CM LOOKED FOR CEZAR, NOT WITH PT, SHE WAS GOING TO LUNCH. NO CARD LEFT AND NO CONTACT INFORMATION LEFT WITH BEDSIDE NURSE. CM NOTIFIED [facility].
--- NOTE | 2018-10-20 15:32 | NUR ---
Nutrition: Pt has expressed she does not like the heart healthy diet meals. Intake 10-20%. Pt is also malnourished. To increase intake, recommend changing heart healthy diet order to regular.
--- NOTE | 2018-10-20 19:30 | NUR ---
ASSUMED CARE AT 0700. REPORT SLEPT FAIR.PATIENT IS ALERT AND ORIENTED X 3-4, BUT IS FORGETFUL. VERY HUSLIA. PATIENT IS HAVING DIFFICULTY SWALLOWING PILLS. A.M. MED HAD TO BE CRUSHED AND PUT IN APPLESAUCE PER ST. PT REFUSED TO HAVE VIDEO SWALLOWING AND DISSATIFIED WITH HER DIET. ST ASSISTED TO ORDER FOOD THAT SHE LIKED. PATIENT STATES" HER MOUTH IS ALWAYS DRY. CONTINUES ON THIN LIQUIDS WITHOUT COUGHING. ST NOTIFIED OF PATIENTS PROBLEM WITH SWALOWING MEDS. UP IN BED FOR MEALS ATE BETTER TODAY. PT DOESN'T LIKE TO BE ALONE. SAT AT DINNING ROOM AFTER THERAPY UNTIL DINNER TIME. C/O PAIN IN HER BACK AND LEFT PELVIS REGION. OT GAVE BATH AND LIDODERM PATCH APPLIED ON BACK. SHE SAID PT IS TOLERATED. PATIENT IS UP WITH ASSIST OF 1 WITH GAIT BELT TO AMBULATE TO BATHROOM. FALL AND SAFETY PROTOCOLS IN PLACE. CONTINUES TO PROGRESS SLOWLY TOWARDS D/C GOALS. GAVE REPORT TO NIGHT NURSE TO CONTINUE TO MONITOR.
[2018-10-20 20:54] VITALS: BP 157/88
--- NOTE | 2018-10-21 01:12 | NUR ---
PT ALERT AND ORIENTED X 4, FORGETFUL. AMB TO BR WITH WALKER AND ASSIST X 1. PAINFUL WITH AMBULATION. PT DENIES PAIN UNLESS MOVING AROUND. PT TAKES MEDS IN APPLESAUCE WITHOUT DIFFICULTY. BED ALARM ON FOR SAFETY. PT CHECKED ON HOURLY ROUNDS.
[2018-10-21 08:15] VITALS: BP 140/80
--- NOTE | 2018-10-21 11:52 | H ---
[facility] [place] [address] HISTORY AND PHYSICAL Name: MERCEDES MIJARES Room #: 515-P [facility] IN M.R.#: [id number] Admission: 10/16/18 ������������������ Attend Phys: Gaudencio Diaz MD Discharge: ������������������ Date of : 31 Report #: [id number] THIS REPORT FOR: //name// CC: Gaudencio Terrazas DATE OF SERVICE: 10/16/2018 HISTORY OF PRESENT ILLNESS: This is an 88-year-old white female who was admitted on 08/07/2018 after a fall at home and sustained a right pubic ramus fracture, [facility] to [facility], was home for one day when she had another fall and sustained an acute left pubic rami fractures as well as bilateral sacral fractures. She was admitted for orthopedic evaluation and pain management. Ortho recommended weightbearing as tolerated. She had problems with confusion and was followed by her primary care for an acute encephalopathy. She was noted to have dehydration, chronic kidney disease. She has now been admitted for acute in-hospital inpatient rehabilitation. PAST MEDICAL HISTORY: Osteoporosis, urinary tract infection, prediabetic, malnutrition, and degenerative arthritis. ALLERGIES: CODEINE, DIAZEPAM, HYDROCODONE, PENICILLIN. MEDICATIONS: Please see the full medication listing. This includes vitamins, herbals, and supplements per her report. SOCIAL HISTORY: The patient lives at home with her who has a history of dementia. Prior to these couple of falls, she was independent with ADLs and IADLs and did not utilize any assistive device. Since her July admission, she was using a walker and wheelchair for longer distances. REVIEW OF SYSTEMS: No complaints of fever or chills. No shortness of breath or cough. No chest pain. No abdominal discomfort. No and rectal changes noted. She has generalized weakness. No numbness or tingling. PHYSICAL EXAMINATION: GENERAL: She is a pleasant 88-year-old slender white female, in no obvious distress. VITAL SIGNS: Last recorded temperature is 99.6, pulse 91, respirations 16, and blood pressure 138/70. NEUROLOGIC: She is alert. She did not know the place and the year. There is a definite latency to her responses, but she follows basic one-step commands. She was noted to have moderate comprehensive deficits prior to admission per speech therapy evaluation. HEENT: Appeared to be benign. CHEST: Sounded clear to auscultation. [place] [id number] HISTORY AND PHYSICAL Name: MERCEDES MIJARES Room #: 515-P [facility] IN M.R.#: [id number] Admission: 10/16/18 ������������������ Attend Phys: Gaudencio Diaz MD Discharge: ������������������ Date of : 31 Report #: [id number] CARDIOVASCULAR: Regular rate and rhythm. ABDOMEN: Bowel sounds positive and nontender. GENITOURINARY AND RECTAL: Deferred. EXTREMITIES: She has functional range of motion of both upper extremities. Strength is grade 4-/5. DTRs are trace to 1. In her lower extremities, no focal calf swelling and functional range of motion. She does have some discomfort with range of motion of her lower extremities. She does have min assist with sit to stand. Gait was min assist short distance with a front-wheeled walker. IMPRESSION: An 88-year-old white female with the following problem list: 1. Encephalopathy. 2. Fall with acute left pubic ramus fracture and bilateral sacral fractures. 3. Subacute right pubic ramus fracture. 4. S3 fracture, indeterminate age. 5. Osteoporosis. 6. Degenerative arthritis. 7. Protein calorie malnutrition. 8. Dehydration. 9. Chronic kidney disease. 10. Diabetes mellitus type 2. 11. Hyperlipidemia. 12. Asymptomatic cholelithiasis. PLAN: The patient is admitted for acute in-hospital inpatient rehabilitation. From a postadmission physician evaluation perspective, there are no relevant changes since the preadmission screening. Please see the review of prior and current medical and functional conditions and comorbidities. Please see the patient's previous and current functional status. As far as risk of complications, the patient has multiple medical comorbidities as noted above. Initial plan of care involves the interdisciplinary acute inpatient rehabilitation program with goal of maximizing the patient's functional independence, so she can hopefully return back to her prior living situation. Measurable functional goals would be for the patient to become modified independent with transfers, mobility, ADLs, so she can return back to her prior living situation. Prognosis is reasonably good with estimated length of stay probably at least 10 days to 2 weeks. Potential barriers would include her above noted comorbidities and decreased functional status. The patient meets diagnostic criteria for an acute in-hospital inpatient rehabilitation stay. She meets the medical necessity criteria and we will have the fundraising consultant physicians involved. She does have the tolerance for therapies. We will be having PT, OT and speech with her cognitive deficits with her [address] [address] HISTORY AND PHYSICAL Name: MERCEDES MIJARES Room #: 515-P [facility] IN M.R.#: [id number] Admission: 10/16/18 ������������������ Attend Phys: Gaudencio Diaz MD Discharge: ������������������ Date of : 31 Report #: [id number] encephalopathy. She does have appropriate discharge goals back to the home setting. Son is considering assisted living options as well per report. ��������������������������������������������� <ELECTRONICALLY SIGNED> ���������������������������������������� By: Gaudencio Diaz MD ��������������������������������������������� 10/21/18 1152 0826 0945 Gaudencio Diaz MD /nt
--- NOTE | 2018-10-21 12:43 | NUR ---
team meeting, recommendation; re team then dc 10/29/18 with 24hr supervision, medication management, fin management.
--- NOTE | 2018-10-21 16:20 | NUR ---
ASSUMED CARE AT 0700. PANEL FITTER REPORT THAT PT DOESN'T WANT TO BE ON HH DIET. NOTIFIED DR. PATEL AND OBTAINED ORDER TO CHANGE TO REG DIET. TEAM CONFERENCE TODAY. PT WILL BE DC ON NEXT Sat, CM NOTIFIED SON AND SON REQUESTS IF HIS MOTHER CAN BE TEST FOR UTI SINCE PT SOUNDS CONFUSED. PATIENT IS ALERT AND ORIENTED X 3-4, BUT IS FORGETFUL. VERY [place]. C/O BACK PAIN THIS AM. PRN TYLENOL GIVEN. LIDODERM PATCH APPLIED TO LOWER BACK. UP WITH GB/WALKER WITH MOD ASSIST. UP FOR THERAPY AND PARTICIPATES WELL. UP TO DINNING ROOM FOR MEALS. RESTING IN BED AT THIS MOMENT. FALL AND SAFETY PROTOCOLS IN PLACE. CONTINUES TO PROGRESS SLOWLY TOWARDS D/C GOALS. WILL CONTINUE TO MONITOR.
[2018-10-21 17:07] LABS: URINE BILIRUBIN NEGATIVE (Negative); URINE BLOOD TRACE (Negative); URINE CLARITY CLEAR; URINE COLOR YELLOW; URINE GLUCOSE-RANDOM* TRACE (Negative); URINE KETONES TRACE (Negative); URINE LEUKOCYTES-REFLEX NEGATIVE (Negative); URINE NITRITE-REFLEX NEGATIVE (Negative); URINE PROTEIN (DIPSTICK) TRACE (Negative); URINE SPECIFIC GRAVITY 1.025 (1.005-1.035)
--- NOTE | 2018-10-21 17:11 | NUR ---
FAXED REFERRAL TO [facility] MSG WITH ADM. DIRECTOR THAT PT. DISCHARGING 10/29. DCP TO FOLLOW.
[2018-10-21 19:35] VITALS: BP 139/69
--- NOTE | 2018-10-22 01:55 | NUR ---
PT ALERT AND ORIENTED X 4, CONFUSED AT TIMES. FORGETFUL. UP TO BSC WITH ASSIST X 1. PAINFUL WITH MOVEMENT. PT REFUSES PAIN MEDS. PT TOOK HS MEDS IN APPLESAUCE WITHOUT DIFFICULTY. BED ALARM ON FOR SAFETY. PT APPEARS TO BE SLEEPING ON HOURLY ROUNDS.
[2018-10-22 08:45] VITALS: BP 145/67
--- NOTE | 2018-10-22 09:20 | NUR ---
ASSUMED CARE AT 0700. PATIENT IS ALERT AND ORIENTED X4, BUT IS FORGETFUL, THEN GETS CONFUSED ABOUT WHAT WAS DISCUSSED. PATIENT OLMSTEAD'S, STAMP PAD MAKER ARE EQUAL. LUNGS ARE CLEAR, ABD IS SOFT WITH BSX4. PATIENT C/O PAIN IN HER LEFT HIP/PELVIS WHEN SHE MOVES. NO PAIN AT REST. UP IN CHAIR FOR BREAKFAST. UP IN HALLWAY WITH P.T. AFTER BREAKFAST. FALL AND SAFETY PROTOCOLS IN PLACE. PAIN ABOVE. CONTINUES TO PROGRESS TOWARDS D/C GOALS. WILL CONTINUE TO MONITER.
[2018-10-22 20:50] VITALS: BP 143/91
--- NOTE | 2018-10-23 03:32 | NUR ---
UNABLE TO SWALLOW TYLENOL PILLS LAST NIGHT, SO SHE AGREED WITH CRUSHING THEM AND GIVING WITH APPLESAUCE. UP TO BSC TWICE WITH PAIN DURING TRANSFERS, STATES ABLE TO GET BACK PAIN DECREASED BACK TO NORMAL BETTER WITH TYLENOL "ON BOARD" DECLINED HS COLACE DUE TO SIGNIFICANT BOWEL MOVEMENT
[2018-10-23 09:03] VITALS: BP 153/93
--- NOTE | 2018-10-23 15:00 | NUR ---
pt up in wc, pt friend nikolas at bedside. cm meet with care helpers and sebastian with jose j [facility]. pt needed to sign some paper work for assisted living. cm discussed from that dr needs to feel out on pt level of function that is due by and asked if could send it over on saturday "yes that is fine usually like them week before move in but saturday is ok"/sebastian. will cont following as needed for dc needs.
[2018-10-23 16:08] LABS: ABSOLUTE NEUTROPHILS 5.7 thou/uL (1.4-8.2); BASOPHILS 0.5 % (0.0-2.0); EOSINOPHILS 0.5 % (0.0-3.0); HEMATOCRIT 38.7 % (37.0-47.0); LYMPHOCYTES 23.5 % (24.0-44.0); MCH 30.1 pg (26.0-34.0); MCHC 33.6 g/dL (28.0-37.0); MCV 89.6 fL (80.0-100.0); MONOCYTES 5.3 % (1.0-8.0); PLATELET COUNT 371 thou/uL (150-400); POLYS 70.2 % (36.0-66.0); RBC 4.32 mil/uL (4.20-5.00); RDW 15.1 % (10.5-14.5); WBC 8.1 thou/uL (4.0-11.0)
[2018-10-23 16:16] LABS: ALBUMIN 3.4 g/dL (3.4-5.0); CREATININE 0.7 mg/dL (0.6-1.0); POTASSIUM 4.1 mmol/L (3.5-5.1); TOTAL BILIRUBIN 0.5 mg/dL (<0.1-1.0); TOTAL PROTEIN 7.4 g/dL (6.4-8.2)
--- NOTE | 2018-10-23 18:31 | NUR ---
ASSUMED CARE OF PATIENT AT APPROXIMATELY 0715. PATIENT IS A&OX4 WITH PERIODS OF FORGETFULNESS THROUGH SHIFT. VITAL SIGNS STABLE. PATIENT REQUIRES MODERATE TO MAXIMUM CUES TO COMPLETE TASKS. PATIENT MADE COMPLAINTS OF PAIN BUT DENIED NEED FOR PAIN MEDICAITON. PATIENT PARTICIPATED IN THERAPY SESSIONS. FALL PRECAUTIONS IN PLACE AND NURSING WILL CONTINUE TO MONITOR PATIENT.
[2018-10-23 22:10] VITALS: BP 131/71
--- NOTE | 2018-10-24 03:57 | NUR ---
UP TO BATHROOM WITH ONE PERSON ASSIST, PIVOTING FROM WC TO TOILET FOR VOID FOR URINE CULTURE. INCONTINENT OF STOOL, LESS PAINFUL WITH MOVEMENTS THAN EVEN 2 DAYS AGO, HENCE LESS APPREHENSIVE ABOUT GET UP. DECLINES PAIN MEDS EVEN WHEN SHE NOTICES PAIN. IS TALKING AT LENGTH ABOUT MOVING TO THE [facility] NEAR AND SHELBI AGAIN TODAY.
[2018-10-24 07:50] VITALS: BP 144/63
--- NOTE | 2018-10-24 18:45 | NUR ---
ASSUMED CARE AT 0800. REPORT SLEPT GOOD LAST NIGHT. PATIENT IS ALERT AND ORIENTED X4, BUT IS FORGETFUL, SLOW IN PROCESS AND DISCUSSION ABOUT CARE PLAN. EASILY GETS CONFUSED ABOUT WHAT WAS DISCUSSED. REASSESSMENT PER CHART. RENAL DIETITIAN ARE EQUAL. LUNGS ARE CLEAR, ABD IS SOFT WITH BSX4. HAD BM TODAY, REFUSED LAXATIVE THIS AM. MORNING MEDS CRUSHED AND GIVEN WITH APPLE SAUCE. PATIENT C/O PAIN IN HER LEFT HIP/PELVIS WHEN SHE MOVES. PRN TYLENOL GIVEN. NO PAIN AT REST. UP IN CHAIR FOR BREAKFAST. UP AND PARTICIPATED WITH THERAPY. C/O SORE IN MOUTH, ORAL GEL PRN GIVEN. FALL AND SAFETY PROTOCOLS IN PLACE. CONTINUES TO PROGRESS TOWARDS D/C GOALS. WILL GIVE REPORT TO NIGHT NURSE TO CONTINUE TO MONITOR.
--- NOTE | 2018-10-25 01:42 | NUR ---
PT ASSESSMENT COMPLETED AND VSS. MEDS GIVEN ORDERED AND WELL TOLERATED. FALL PRECAUTIONS IN PLACE. CONTACTED DR REGARDING SODIUM LEVEL OF 129 AND RIGHT GREAT TOE PAIN. PER DR LOCO PT IS NOW ON A 1500 DAILY FLUID RESTRICTION AND WE WILL CHECK A BMP SATURDAY AND URIC ACID IN AM. PRN MOTRIN HELPFUL FOR PAIN. PT SLEEPING WELL. REPOSITIONING. PT VERY ANXIOUS AND FORGETFUL. PROVIDED MUCH EMOTIONAL SUPPORT. WILL CONTINUE TO MONITOR FREQUENTLY.
[2018-10-25 07:45] VITALS: BP 174/100
--- NOTE | 2018-10-25 10:21 | NUR ---
ASSUMED CARE AT 0700. PATIENT IS ALERT AND ORIENTED, BUT FORGETFUL. PATIENT OLMSTEAD'S, [employer]SIAN STUDIES PROGRAM CHAIR ARE EQUAL. PATIENT HAS LEFT PELVIC FX. "IT DOESN'T HURT IF I DONT MOVE AROUND. " ABD IS SOFT WITH BSX4. UP TO THE BR TO VOID BRAYAN COLORED URINE AND HAVE A BM. FALL AND SAFETY PROTOCOLS IN PLACE. UP IN W/C FOR BREAKFAST. DENIES ANY PAIN AT THIS TIME. CONTINUES TO PROGRESS TOWARDS D/C GOALS. WILL CONTINUE TO MONITER.
[2018-10-25 19:50] VITALS: BP 140/72
--- NOTE | 2018-10-26 14:46 | NUR ---
ASSUMED CARE AT APPROX 0715. PATIENT A/O X4. VSS. DENIES NEED OF PAIN MEDICATION, C/O OCCASIONAL POSITIONAL PAIN IN LOWER BACK, NECK, AND HIPS. UP X1 ASSIST GB AND WALKER. SELF-PROPELS WC AROUND UNIT. UP IN CHAIR FOR MEALS. AT TIMES COMPLETES CARES WITH CUEING & ENCOURAGEMENT, AND ASSIST GATHERING SUPPLIES. ANXIOUS AT TIMES, NEEDING MIN ASSIST WITH HYGIENE AFTER BOWEL MOVEMENT. VERBALIZES WORRY THAT SHE WILL NOT BE ABLE TO MANAGE SELF-CARES ON HER OWN. FALL PRECAUTIONS IN PLACE. PATIENT CALLS APPROPRIATELY. INCONTINENT OF BM X1 THIS DATE. ROUNDED ON HOURLY. WILL CONTINUE TO MONITOR.
[2018-10-26 19:45] VITALS: BP 133/68
--- NOTE | 2018-10-27 01:13 | NUR ---
PT ALERT AND ORIENTED X 4, FORGETFUL. AMB TO BR WITH WALKER AND ASSIST X 1. PT C/O PAIN IN HER BACK. TYLENOL GIVEN AT HS AND PT SLEEPING UPON REASSESSMENT. BED ALARM ON FOR SAFETY. PT APPEARS TO BE SLEEPING ON HOURLY ROUNDS.
[2018-10-27 05:59] LABS: CALCIUM 9.4 mg/dL (8.5-10.1); CREATININE 0.6 mg/dL (0.6-1.0)
--- NOTE | 2018-10-27 11:04 | NUR ---
PATIENT CARE WAS ASSUMED AT 0715.PATIENT IS ALERT AND ORIENTED X4.PATIENT AMBULATES WITH X1 ASSIST WITH WALKER.PATIENT STATES SHE HAS PAIN WILL GIVE TYLENOL WITH MORNING MEDS.PATIENT TAKES MEDS WITH APPLE SAUCE AND SIPS OF WATER.FALL PRECAUTIONS ARE IN PLACE.CALL LIGHT,PHONE, AND PERSONAL BELONGINGS ARE WITHIN REACH.
--- NOTE | 2018-10-27 13:00 | NUR ---
cm notified that pt on service with [facility] and will follow her sera HUTCHINSON
[2018-10-27 20:51] VITALS: BP 152/80
--- NOTE | 2018-10-28 00:49 | NUR ---
PT ALERT AND ORIENTED X 4, CONFUSED AT TIMES. AMB TO BR WITH WALKER AND ASSIST X 1. VERY PAINFUL WITH AMB. PT C/O PAIN IN HER BACK WITH MOVEMENT. REFUSED PAIN MEDS. PT VERY ANXIOUS ABOUT PENDING DISCHARGE. SPENT A GREAT DEAL OF TIME DISCUSSING THIS WITH PT. EMOTIONAL SUPPORT PROVIDED. BED ALARM ON FOR SAFETY. PT CHECKED ON HOURLY ROUNDS.
[2018-10-28 07:25] VITALS: BP 155/84
--- NOTE | 2018-10-28 10:39 | NUR ---
ASSUMED CARE AT 0700. PATIENT IS ALERT AND ORIENTED, BUT FORGETFUL. PATIENT OLMSTEAD'S. UPHOLSTERY TRIMMER ARE EQUAL. LUNGS ARE CLEAR. ABD IS SOFT WITH BSX4. PATIENT UP TO THE BATHROOM TO VOID BRAYAN COLORED URINE. PATIENT STATES " SHE FEELS LIKE SHE IS NOT READY TO GO HOME." FALL AND SAFETY PROTOCOLS IN PLACE. DENIES ANY PAIN. PATIENT HAD BREAKFAST WITH SPEECH THERAPY THIS A.M. AND WOULD LIKE HER DIET ADVANCED. PATIENT HAD TRIAL REGULAR DIET AND HAD CONTINUED THROAT CLEARING WITH EACH BITE. PER ST PATIENT NEEDS TO STAY ON [facility] SOFT/CHOPPED DIET. CONTINUES TO PROGRESS TOWARDS D/C GOALS. WILL CONTINUE TO MONITER.
--- NOTE | 2018-10-28 12:54 | NUR ---
Nutrition: Pt seen for f/u. States that she is "never really hungry but will go ahead and eat something". Intake in EMR shows an average of 50%. Around 40% of lunch eaten today. Refuses all supplements. Decreased intake/appetite likely related to advanced age. Current wt 107 lbs, stable x2 weeks. Being d/c tomorrow. Low nutrition risk.
--- NOTE | 2018-10-28 14:08 | NUR ---
team meeting recommendation: 17th to [facility] with [facility] ( pt, ot, st, nursing), wheel chair transport set up by for [phone] [facility]. chart copy requested. bedside nurse to call report [phone]. friend to bring walker to pt for dc.
--- NOTE | 2018-10-28 16:01 | PLAN ---
[facility] [place] [address] REHAB UNIT PLAN OF CARE Name: MERCEDES MIJARES Room #: 515-P ADM IN M.R.#: [id number] Admission: 10/16/18 ������������������ Attend Phys: Gaudencio Diaz MD Discharge: ������������������ Date of : 32 Report #: [id number] THIS REPORT FOR: //name// CC: Gaudencio Terrazas DATE OF SERVICE: 10/18/2018 PROGRESS NOTE/OVERALL PLAN OF CARE SUBJECTIVE: The patient was seen in followup. Last recorded temperature 97.6, pulse 101, respirations 16, blood pressure is 159/94. She was seen earlier. She had a large BM noted earlier this a.m. She was sleepy, in no distress. She has been working in therapies with transfers at a mod assist level. Gait min assist 15 feet front-wheeled walker. In occupational therapy, lower body dressing is min assist. Upper body dressing has been min assist. In speech therapy, she has been on a mechanical soft diet with thin liquids. As far as her cognition, she has been further evaluated. She was noted to have [id number] cognitive deficits during her speech therapy evaluation yesterday and severe memory. ASSESSMENT: 1. Encephalopathy. 2. Fall with acute left pubic ramus fracture and bilateral sacral fractures. 3. Subacute right pubic ramus fracture. 4. Sacral fracture, indeterminate age. 5. Osteoporosis. 6. Degenerative arthritis. 7. Protein calorie malnutrition. 8. Dehydration. 9. Chronic kidney disease. 10. Diabetes mellitus type 2. 11. Hyperlipidemia. 12. Asymptomatic cholelithiasis. PLAN: The overall plan of care is based on the preadmission screen, post-admission physician evaluation and information garnered from therapy assessments. 1. Estimated length of stay is probably 10 days to 2 weeks. 2. Medical prognosis is reasonably good. 3. Anticipated interventions includes the interdisciplinary acute inpatient rehabilitation program with goal of maximizing the patient's functional independence, so that she can hopefully return back to her prior living situation. This would include the involvement of the interdisciplinary acute inpatient rehabilitation program. [address] [address] REHAB UNIT PLAN OF CARE Name: DYLLANMERCEDESJAMI ESPINO Room #: 515-P [facility] IN M.R.#: [id number] Admission: 10/16/18 ������������������ Attend Phys: Gaudencio Diaz MD Discharge: ������������������ Date of : 32 Report #: [id number] 4. Anticipated functional outcomes would be for the patient to become modified independent with transfers and mobility issues. She had been using a walker since her 07/2018 admission with a wheelchair for longer distances. 5. Discharge destination would be back home with her , although she has a history of dementia. Son is looking at options. 6. Expected therapy by the son includes PT, OT and speech 1 hour per day each five days a week throughout the duration of the acute inpatient rehabilitation stay. ��������������������������������������������� <ELECTRONICALLY SIGNED> ���������������������������������������� By: Gaudencio Diaz MD ��������������������������������������������� 10/28/18 1601 [id number] [id number] Gaudencio Diaz MD /nt
[2018-10-28 20:10] VITALS: BP 141/84
[2018-10-28] MEDS ORDERED: ANBESOL9 GM TOP (23:14)
[2018-10-28] MEDS ORDERED: TUMS PO (23:15)
--- NOTE | 2018-10-29 04:30 | NUR ---
PT ANXIOUS ABOUT BEING DISCHARGED TODAY, ANXIOUS THAT SHE WILL NOT GET HELP WITH HER ADLS, CONTINUE TO NEED ASSISTANCE WITH AMBULATION, X1 BM LAST NOC, PT IS CONTINENT, NO URINE ACCIDENT NOTED, CREAM TO COCCYX, SLIGHT REDNESS NOTED, ON ROOM AIR, CONTINUE TO C/O HIP PAIN, TRAMADOL AND OXY FOR PAIN, MONITORED.
[2018-10-29 08:04] VITALS: BP 151/82
[2018-10-29] MEDS ORDERED: TRAMADOL 50 MG50 MG PO (10:13)
--- NOTE | 2018-10-29 11:39 | NUR ---
ASSUMED CARE AT 0700. PATIENT IS ALERT AND ORIENTED, BUT FORGETFUL. PATIENT OLMSTEAD'S. RECREATIONAL THERAPIST ARE EQUAL. LUNGS ARE CLEAR. ABD IS SOFT WITH BSX4. UP TO THE BATHROOM TO VOID BRAYAN COLORED URINE AND HAVE A SMALL BM. PATIENT IS UP WITH ASSIST OF 1 STAFF. FALL AND SAFETY PROTOCOLS IN PLACE. C/O LEFT HIP AND BACK PAIN. MEDICATED WITH PRN PAIN MED. LIDODERM PATCH APPLIED TO LOWER BACK. CONTINUES TO PROGRESS TOWARDS D/C GOALS. PLAN D/C TO [facility] AT 1330 BY W/C MONSTER. WILL CONTINUE TO MONITER.
--- NOTE | 2018-10-29 12:02 | NUR ---
PT. DISCHARGING TODAY TO [facility] Karen FAXED DC ORDERS/SUMMARY TO FACILITY SPOKE WITH ELIZABETH IN ADM. SHE RECEIVEED DC ORDERS AND TRANSPORT ARRANGED VIA VAN FOR [phone]. NOTIFIED SON (SUKUMAR) OF DC AND TIME OF TRANSPORT. UNIT NOTIFIED OF TRANSPORT TIME. RN TO CALL REPORT TO [phone].
--- NOTE | 2018-10-29 13:30 | NUR ---
DISCHARGED TO [facility]. PATIENT LEFT WITH ALL HER BELONGINGS AND D/C INSTRUCTIONS, AND SCRIPTS. PATIENT LEFT UNIT VIA W/C.
--- NOTE | 2018-10-29 16:37 | NUR ---
cm received phone call from ceciwindham asking if pt would benefit from some more rehab and if therapy thought she was ready for dc. education that pt was ready to dc per team conference and pt gets anxious and new facility she has never been to could contribute to some anxiety. pt has been there for respite while she been in acute rehab and is going to stay at [facility] [place]. jose j asked to speak with [facility], audra forward call to nurse manage of acute rehab and passed it on to bedside nurse as well.
== END 2018-10-29 13:31 | disposition home health service (06) | DRG 91 ==
PROVIDERS: Internal Medicine; Nurse Practitioner Family; ADMIT Physical Medicine & Rehabilitation
DX: G92 Toxic encephalopathy (principal); E43 Unspecified severe protein-calorie malnutrition; S32.592A Other specified fracture of left pubis, initial encounter for closed fracture; S32.591A Other specified fracture of right pubis, initial encounter for closed fracture; S32.10XA Unspecified fracture of sacrum, initial encounter for closed fracture; Z68.1 Body mass index [BMI] 19.9 or less, adult; M81.0 Age-related osteoporosis without current pathological fracture; M19.90 Unspecified osteoarthritis, unspecified site; E86.0 Dehydration; E11.22 Type 2 diabetes mellitus with diabetic chronic kidney disease; E78.5 Hyperlipidemia, unspecified; K80.20 Calculus of gallbladder without cholecystitis without obstruction; F01.50 Vascular dementia, unspecified severity, without behavioral disturbance, psychotic disturbance, mood disturbance, and anxiety; F43.23 Adjustment disorder with mixed anxiety and depressed mood; N18.3 Chronic kidney disease, stage 3 (moderate); R41.0 Disorientation, unspecified; K59.00 Constipation, unspecified; R13.12 Dysphagia, oropharyngeal phase; W18.39XA Other fall on same level, initial encounter; Z87.440 Personal history of urinary (tract) infections; Z88.0 Allergy status to penicillin; Z88.6 Allergy status to analgesic agent; Z88.8 Allergy status to other drugs, medicaments and biological substances; Y93.89 Activity, other specified; Y92.098 Other place in other non-institutional residence as the place of occurrence of the external cause; Y99.8 Other external cause status
CPT/HCPCS: 10112

== ENCOUNTER 2018-11-04 15:17 | Emergency (ER) | payer OTHER ==
[~2018-11-04] VITALS: Ht 165.1 cm; Wt 49.9 kg
[~2018-11-04 15:17] MED LIST changes: +ANBESOL9 GM TOP; +ENOXAPARIN40 MG/0.1 SUBQ; +MIRALAX17 GM PO; +PIOGLITAZONE15 MG PO; +TUMS PO
[2018-11-04 15:52] LABS: ABSOLUTE NEUTROPHILS 5.9 thou/uL (1.4-8.2); BASOPHILS 0.5 % (0.0-2.0); EOSINOPHILS 0.4 % (0.0-3.0); HEMATOCRIT 37.6 % (37.0-47.0); HEMOGLOBIN 12.8 gm/dL (12.0-15.0); LYMPHOCYTES 21.4 % (24.0-44.0); MCHC 34.1 g/dL (28.0-37.0); MCV 87.9 fL (80.0-100.0); MONOCYTES 6.3 % (1.0-8.0); PLATELET COUNT 374 thou/uL (150-400); POLYS 71.4 % (36.0-66.0); RBC 4.28 mil/uL (4.20-5.00); RDW 15.2 % (10.5-14.5); WBC 8.3 thou/uL (4.0-11.0)
[2018-11-04 16:04] LABS: ANION GAP 13 mmol/L (7-16); BUN 14 mg/dL (7-18); CALCIUM 9.7 mg/dL (8.5-10.1); CHLORIDE 84 mmol/L (98-107); CO2 24 mmol/L (21-32); CREATININE 0.5 mg/dL (0.6-1.0); GLUCOSE 158 mg/dL (74-106); POTASSIUM 3.8 mmol/L (3.5-5.1); SODIUM 121 mmol/L (136-145)
[2018-11-04 16:14] LABS: ALBUMIN 3.1 g/dL (3.4-5.0); MAGNESIUM 1.3 mg/dL (1.8-2.4); SALICYLATE < 2.8 mg/dL (2.8-20.0); SGOT 19 U/L (15-37); SGPT 14 U/L (30-65); TOTAL BILIRUBIN 0.6 mg/dL (<0.1-1.0); TROPONIN-I <0.06 ng/mL (<0.06)
[2018-11-04 17:27] LABS: URINE BILIRUBIN NEGATIVE (Negative); URINE BLOOD TRACE (Negative); URINE CLARITY CLEAR; URINE COLOR YELLOW; URINE GLUCOSE-RANDOM* 1+ (Negative); URINE KETONES 2+ (Negative); URINE NITRITE-REFLEX NEGATIVE (Negative); URINE PROTEIN (DIPSTICK) 1+ (Negative); URINE SPECIFIC GRAVITY >= 1.030 (1.005-1.035); URINE UROBILINOGEN 0.2 E.U./dl (0.2-1.0)
[2018-11-04 17:29] LABS: URINE LEUKOCYTES-REFLEX 1+ (Negative)
[2018-11-04 17:32] LABS: AMP/METHAMP Negative (Negative); BARBITURATES Negative (Negative); BENZODIAZEPINES Negative (Negative); COCAINE Negative (Negative); METHADONE Negative (Negative); OPIATES Negative (Negative); PCP Negative (Negative)
[2018-11-04] MEDS ORDERED: TRAMADOL 50 MG50 MG PO (17:36)
[2018-11-04 17:46] LABS: CASTS None Seen /LPF (None Seen); SQUAMOUS 4-10 Moderate /LPF (0-3); URINE RBC 3-10 Few /HPF (0-2); URINE WBC-REFLEX >25 Many /HPF (0-5)
[2018-11-04 17:47] LABS: BACTERIA-REFLEX None Seen /HPF (None Seen); CRYSTALS None Seen /LPF (None Seen); WBC CLUMPS Few (None Seen)
[2018-11-04 19:05] VITALS: BP 175/104
--- NOTE | 2018-11-06 17:14 | EKG ---
[address] [address] ELECTROCARDIOGRAM REPORT Name: MERCEDES MIJARES Room #: DEP 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 : 1930 Requested By: Srinivasan Mireles Order Number: [id number] MD: Evangelista Kowalski Measurements Intervals [place] Rate: 107 P: 61 W[place]: 180 QRS: -16 QRSD: 90 T: 22 QT: 317 QTc: 423 Interpretive Statements Sinus tachycardia Inferior infarct, old Probable anteroseptal infarct, recent Baseline wander in lead(s) I,aVL No previous ECG available for comparison Electronically Signed On 11-06-2018 17:13:53 CDT by Evangelista Kowalski [email or web address] ��������������������������������������������� <ELECTRONICALLY SIGNED> ���������������������������������������� By: Evangelista Kowalski MD ��������������������������������������������� 11/06/18 9273 [id number] 160 Evangelista Kowalski MD /EPI
== END 2018-11-04 19:06 ==
LOC: ER 15:17
PROVIDERS: Emergency Medicine
DX: M25.531 Pain in right wrist (principal); R45.4 Irritability and anger; Z88.5 Allergy status to narcotic agent; Z88.4 Allergy status to anesthetic agent; Z88.0 Allergy status to penicillin; Z88.8 Allergy status to other drugs, medicaments and biological substances

== ENCOUNTER 2019-01-29 23:19 | Emergency (ER) | payer OTHER ==
[~2019-01-29] VITALS: Ht 152.4 cm; Wt 59.0 kg
[2019-01-30 01:13] LABS: ABSOLUTE NEUTROPHILS 4.7 thou/uL (1.4-8.2); BASOPHILS 0.6 % (0.0-2.0); EOSINOPHILS 0.8 % (0.0-3.0); HEMATOCRIT 37.2 % (37.0-47.0); HEMOGLOBIN 12.2 gm/dL (12.0-15.0); LYMPHOCYTES 33.5 % (24.0-44.0); MCH 29.9 pg (26.0-34.0); MCHC 32.7 g/dL (28.0-37.0); MCV 91.6 fL (80.0-100.0); MONOCYTES 5.2 % (1.0-8.0); PLATELET COUNT 249 thou/uL (150-400); POLYS 59.9 % (36.0-66.0); RBC 4.06 mil/uL (4.20-5.00); RDW 16.5 % (10.5-14.5); WBC 7.9 thou/uL (4.0-11.0)
[2019-01-30 01:17] LABS: ANION GAP 6 mmol/L (7-16); BUN 20 mg/dL (7-18); CALCIUM 9.2 mg/dL (8.5-10.1); CHLORIDE 98 mmol/L (98-107); CO2 32 mmol/L (21-32); CREATININE 0.8 mg/dL (0.6-1.0); GLUCOSE 148 mg/dL (74-106); POTASSIUM 3.6 mmol/L (3.5-5.1); SODIUM 136 mmol/L (136-145)
[2019-01-30 01:25] LABS: TROPONIN-I <0.06 ng/mL (<0.06)
[2019-01-30 02:09] LABS: URINE BILIRUBIN NEGATIVE (Negative); URINE BLOOD TRACE (Negative); URINE CLARITY CLEAR; URINE COLOR YELLOW; URINE GLUCOSE-RANDOM* NEGATIVE (Negative); URINE KETONES NEGATIVE (Negative); URINE LEUKOCYTES-REFLEX 2+ (Negative); URINE NITRITE-REFLEX NEGATIVE (Negative); URINE PROTEIN (DIPSTICK) NEGATIVE (Negative); URINE UROBILINOGEN 0.2 E.U./dl (0.2-1.0)
[2019-01-30 02:22] LABS: BACTERIA-REFLEX 1-9 Few /HPF (None Seen); CASTS None Seen /LPF (None Seen); CRYSTALS None Seen /LPF (None Seen); MUCUS None Seen strn/LPF (None Seen); SQUAMOUS 0-3 Few /LPF (0-3); URINE RBC None Seen /HPF (0-2)
[2019-01-30] MEDS ORDERED: KEFLEX500 M1 PO (02:45)
[2019-01-30 03:26] VITALS: BP 147/86
--- NOTE | 2019-02-01 18:09 | EKG ---
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: coreen stuart : 1930 Requested By: Elsie Casanova Order Number: [id number] MD: Clayton Son Measurements Intervals [place] Rate: 94 P: 50 [place]: 169 QRS: -22 QRSD: 90 T: 25 QT: 354 QTc: 443 Interpretive Statements Sinus rhythm Borderline left axis deviation Probable anteroseptal infarct, age indeterminate Compared to ECG 11/04/2018 16:02:42 Sinus tachycardia no longer present Anteroseptal repolarization abnormality is less prominent Electronically Signed On 02-01-2019 18:08:57 CDT by Clayton Son [email or web address] ��������������������������������������������� <ELECTRONICALLY SIGNED> ���������������������������������������� By: Clayton Son MD, [facility] ��������������������������������������������� 02/01/19 1808 2329 2329 Clayton Son MD, [facility] /EPI
== END 2019-01-30 04:22 | disposition home or self-care (01) ==
LOC: ER 23:19
PROVIDERS: Emergency Medicine
DX: N39.0 Urinary tract infection, site not specified (principal); Z88.5 Allergy status to narcotic agent; Z88.4 Allergy status to anesthetic agent; Z88.8 Allergy status to other drugs, medicaments and biological substances; Z88.0 Allergy status to penicillin